=== PATIENT | female | born 1990 | race Caucasian/White ===

== ENCOUNTER 2019-03-07 01:06 | Inpatient (IN) | payer OTHER ==
[2019-03-07] MEDS ORDERED: Terbutaline 1 MG/ML SDV SUBCUT PRN (08:31)
[2019-03-07] MEDS ORDERED: Methylergonovine 0.2 MG/1 ML Amp IM PRN ×2 (08:34→18:00)
[2019-03-07] MEDS ORDERED: Carboprost Tromethamine 250 MCG/1 ML Amp IM PRN (08:34)
[2019-03-07] MEDS ORDERED: Sodium Chloride 0.9% 10 ML Syringe FLUSH PRN (08:34)
[2019-03-07] MEDS ORDERED: Ondansetron 4 MG/2 ML SDV IVPUSH PRN (08:34)
[2019-03-07] MEDS ORDERED: Water For Irrigation,Sterile 1,000 ML Container IRR PRN (08:34)
[2019-03-07] MEDS ORDERED: Butorphanol 1 MG/ML SDV IVPUSH PRN (08:34)
[2019-03-07] MEDS ORDERED: Nalbuphine 10 MG/1 ML Vial IVPUSH PRN (08:34)
[2019-03-07] MEDS ORDERED: Sodium Chloride 0.9% 2.5 ML Syringe FLUSH PRN (08:34)
[2019-03-07] MEDS ORDERED: Sodium Chloride 0.9% 10 ML SDV IV PRN (08:34)
[2019-03-07] MEDS ORDERED: Tranexamic Acid 1,000 MG in Sodium Chloride 0.9% 100 ML IV PRN ×2 (08:34→18:00)
[2019-03-07] MEDS ORDERED: Misoprostol 200 MCG Tab PO PRN (08:34)
[2019-03-07] MEDS ORDERED: Lidocaine 1% 50 ML MDV INJECT PRN (08:34)
[2019-03-07] MEDS ORDERED: hydrOXYzine HCl 25 MG Tab PO PRN (08:34)
[2019-03-07] MEDS ORDERED: Oxytocin/0.9 % Sodium Chloride 30 UNIT/500 ML BAG IV SCH ×2 (08:45)
[2019-03-07] MEDS: Lactated Ringers 1,000 ML IV SCH ×2 (08:50→12:24)
[2019-03-07] MEDS ORDERED: fentaNYL 100 MCG/2 ML SDV ONE (12:03)
[2019-03-07] MEDS ORDERED: Bupivicaine/fentaNYL/NS 250 ML ONE (12:04)
[2019-03-07] MEDS ORDERED: Bupivacaine 0.25% 10 ML SDV ONE (12:04)
--- NOTE | 2019-03-07 12:31 | PCM.PREANE ---
Preanesthetic Assessment - Anesthesia/Transfusion/Family Hx Anesthesia History: Prior Anesthesia Without Reaction Transfusion History: No Prior Transfusion(s) - Review of Systems General: No Symptoms Pulmonary: No Symptoms Cardiovascular: No Symptoms Gastrointestinal: No Symptoms Neurological: No Symptoms - Physical Assessment Height: 1.6 m Weight: 102.965 kg ASA Class: 2E Mental Status: Alert & Oriented x3 Dentition: Reports: Normal Dentition Lungs: Clear to Auscultation, Normal Respiratory Effort Cardiovascular: Regular Rate, Regular Rhythm - Lab Values: Laboratory Last Values WBC 10.80 K/uL (4.0-11.0) 03/07/19 08:53 RBC 4.31 M/uL (4.30-5.90) 03/07/19 08:53 Hgb 11.1 g/dL (12.0-16.0) L 03/07/19 08:53 Hct 34.1 % (36.0-46.0) L 03/07/19 08:53 MCV 79.1 fL (80.0-98.0) L 03/07/19 08:53 MCH 25.8 pg (27.0-32.0) L 03/07/19 08:53 MCHC 32.6 g/dL (31.0-37.0) 03/07/19 08:53 RDW Std Deviation 41.2 fl (28.0-62.0) 03/07/19 08:53 RDW Coeff of Raul 15 % (11.0-15.0) 03/07/19 08:53 Plt Count 252 K/uL (150-400) 03/07/19 08:53 MPV 11.00 fL (7.40-12.00) 03/07/19 08:53 Nucleated RBC % 0.0 /100WBC 03/07/19 08:53 Nucleated RBCs # 0 K/uL 03/07/19 08:53 Blood Type B POSITIVE 03/07/19 08:53 Antibody Screen NEGATIVE 03/07/19 08:53 - Allergies Allergies/Adverse Reactions: Allergies Allergy/AdvReac Type Severity Reaction Status Date / Time No Known Allergies Allergy Verified 03/07/19 01:16 - Acknowledgements Pt an Appropriate Candidate for the Planned Anesthesia: Yes Alternatives and Risks of Anesthesia Discussed w Pt/Guardian: Yes Pt/Guardian Understands and Agrees with Anesthesia Plan: Yes PreAnesthesia Questionnaire - Past Health History Medical/Surgical History: Denies Medical/Surgical History HEENT History: Reports: None Cardiovascular History: Reports: None Respiratory History: Reports: None Gastrointestinal History: Reports: None Genitourinary History: Reports: None BOX MAKER History: Reports: Musculoskeletal History: Reports: None Neurological History: Reports: None Psychiatric History: Reports: None Endocrine/Metabolic History: Reports: None Hematologic History: Reports: None Immunologic History: Reports: None Dermatologic History: Reports: None - Infectious Disease History Infectious Disease History: Reports: None - Past Surgical History Head Surgeries/Procedures: Reports: None - SUBSTANCE USE Smoking Status *Q: Former Smoker Tobacco Use Within Last Twelve Months: Cigarettes Second Hand Smoke Exposure: No Recreational Drug Use History: No - CURRENT (IN HOUSE) MEDS Current Meds: Current Medications Butorphanol Tartrate (Stadol) 1 mg IVPUSH Q1H PRN PRN Reason: Pain Carboprost Tromethamine (Hemabate Ds) 250 mcg IM ASDIRECTED PRN PRN Reason: Post Hemorrhage Hydroxyzine HCl (Atarax) 25 mg PO Q6H PRN PRN Reason: Itching Oxytocin/Sodium Chloride (Oxytocin 30 Unit/500 Ml-Ns) 30 unit in 500 mls @ 2 mls/hr IV TITRATE CAMRON; Protocol Last Titration: 03/07/19 11:30 Dose: 10 munits/min, 10 mls/hr Tranexamic Acid 1,000 mg/ (Sodium Chloride) 110 mls @ 660 mls/hr IV ONETIME PRN PRN Reason: Bleeding Lactated Ringer's (Ringers, Lactated) 1,000 mls @ 150 mls/hr IV ASDIRECTED CAMRON Last Admin: 03/07/19 08:50 Dose: 150 mls/hr Oxytocin/Sodium Chloride (Oxytocin 30 Unit/500 Ml-Ns) 30 unit in 500 mls @ 1, 000 mls/hr IV TITRATE CAMRON Lidocaine HCl (Xylocaine 1%) 50 ml INJECT ONETIME PRN PRN Reason: Laceration repair Methylergonovine Maleate (Methergine) 0.2 mg IM ASDIRECTED PRN PRN Reason: Post Hemorrhage Misoprostol (Cytotec) 200 mcg PO ONETIME PRN PRN Reason: Post Hemorrhage Nalbuphine HCl (Nubain) 10 mg IVPUSH Q1H PRN PRN Reason: Pain (severe 7-10) Ondansetron HCl (Zofran) 4 mg IVPUSH Q4H PRN PRN Reason: Nausea/Vomiting Sodium Chloride (Saline Flush) 10 ml FLUSH ASDIRECTED PRN PRN Reason: Keep Vein Open Sodium Chloride (Saline Flush) 2.5 ml FLUSH ASDIRECTED PRN PRN Reason: Keep Vein Open Sodium Chloride (Normal Saline) 10 ml IV ASDIRECTED PRN PRN Reason: IV Use Sterile Water (Sterile Water For Irrigation) 1,000 ml IRR ASDIRECTED PRN PRN Reason: delivery Terbutaline Sulfate (Brethine) 0.25 mg SUBCUT ASDIRECTED PRN PRN Reason: Tacysystole Discontinued Medications Bupivacaine HCl (Sensorcaine-Mpf 0.25%) Confirm Administered Dose 10 ml .ROUTE .STK-MED ONE Stop: 03/07/19 12:05 Fentanyl (Sublimaze) Confirm Administered Dose 100 mcg .ROUTE .STK-MED ONE Stop: 03/07/19 12:04 Fentanyl/Bupivacaine HCl (Fentanyl/Bupivacaine/Ns 2 Mcg-0.125% 250 Ml) Confirm Administered Dose 250 mls @ as directed .ROUTE .STK-MED ONE Stop: 03/07/19 12:05
--- NOTE | 2019-03-07 17:57 | PCM.DEL ---
L & D Note - General Info Date of Service: 03/07/19 Mother's Due Date: 03/08/19 - Delivery Note Labor: Induced by Oxytocin Delivery Outcome: Livebirth Infant Delivery Method: Spontaneous Vaginal Delivery-Single Presentation: Left Occiput Anterior (SHAZIA) Nuchal Cord: None Prep: Other Anesthesia Type: Epidural Amniotic Fluid Description: Clear Episiotomy Type: None Laceration: 1st Degree Suture type: Vicryl Suture size: 3-0 Placenta: Intact, Spontaneous, Abnormal Resuscitation Needed: No [place]: Suctioned Score 1 min: 9 Score 5 min: 9 Delivery Comments (Free Text/Narrative):: liveborn male at 1738, placenta spontaneous, Méndez intact with 3 vessels. EBL 200 ml - General Info Date of Service: 03/07/19 - Patient Data Weight - Most Recent: 102.965 kg Lab Results Last 24 Hours: Laboratory Results - last 24 hr 03/07/19 03/07/19 Range/Units 08:53 08:53 WBC 10.80 (4.0-11.0) K/uL RBC 4.31 (4.30-5.90) M/uL Hgb 11.1 L (12.0-16.0) g/dL Hct 34.1 L (36.0-46.0) % MCV 79.1 L (80.0-98.0) fL MCH 25.8 L (27.0-32.0) pg MCHC 32.6 (31.0-37.0) g/dL RDW Std Deviation 41.2 (28.0-62.0) fl RDW Coeff of Raul 15 (11.0-15.0) % Plt Count 252 (150-400) K/uL MPV 11.00 (7.40-12.00) fL Nucleated RBC % 0.0 /100WBC Nucleated RBCs # 0 K/uL Blood Type B POSITIVE Antibody Screen NEGATIVE Med Orders - Current: Current Medications Butorphanol Tartrate (Stadol) 1 mg IVPUSH Q1H PRN PRN Reason: Pain Carboprost Tromethamine (Hemabate Ds) 250 mcg IM ASDIRECTED PRN PRN Reason: Post Hemorrhage Hydroxyzine HCl (Atarax) 25 mg PO Q6H PRN PRN Reason: Itching Oxytocin/Sodium Chloride (Oxytocin 30 Unit/500 Ml-Ns) 30 unit in 500 mls @ 2 mls/hr IV TITRATE CAMRON; Protocol Last Titration: 03/07/19 15:41 Dose: 16 munits/min, 16 mls/hr Tranexamic Acid 1,000 mg/ (Sodium Chloride) 110 mls @ 660 mls/hr IV ONETIME PRN PRN Reason: Bleeding Lactated Ringer's (Ringers, Lactated) 1,000 mls @ 150 mls/hr IV ASDIRECTED CAMRON Last Infusion: 03/07/19 12:46 Dose: 150 mls/hr Oxytocin/Sodium Chloride (Oxytocin 30 Unit/500 Ml-Ns) 30 unit in 500 mls @ 1, 000 mls/hr IV TITRATE CAMRON Lidocaine HCl (Xylocaine 1%) 50 ml INJECT ONETIME PRN PRN Reason: Laceration repair Methylergonovine Maleate (Methergine) 0.2 mg IM ASDIRECTED PRN PRN Reason: Post Hemorrhage Misoprostol (Cytotec) 200 mcg PO ONETIME PRN PRN Reason: Post Hemorrhage Nalbuphine HCl (Nubain) 10 mg IVPUSH Q1H PRN PRN Reason: Pain (severe 7-10) Ondansetron HCl (Zofran) 4 mg IVPUSH Q4H PRN PRN Reason: Nausea/Vomiting Sodium Chloride (Saline Flush) 10 ml FLUSH ASDIRECTED PRN PRN Reason: Keep Vein Open Sodium Chloride (Saline Flush) 2.5 ml FLUSH ASDIRECTED PRN PRN Reason: Keep Vein Open Sodium Chloride (Normal Saline) 10 ml IV ASDIRECTED PRN PRN Reason: IV Use Sterile Water (Sterile Water For Irrigation) 1,000 ml IRR ASDIRECTED PRN PRN Reason: delivery Terbutaline Sulfate (Brethine) 0.25 mg SUBCUT ASDIRECTED PRN PRN Reason: Tacysystole Discontinued Medications Bupivacaine HCl (Sensorcaine-Mpf 0.25%) Confirm Administered Dose 10 ml .ROUTE .STK-MED ONE Stop: 03/07/19 12:05 Fentanyl (Sublimaze) Confirm Administered Dose 100 mcg .ROUTE .STK-MED ONE Stop: 03/07/19 12:04 Fentanyl/Bupivacaine HCl (Fentanyl/Bupivacaine/Ns 2 Mcg-0.125% 250 Ml) Confirm Administered Dose 250 mls @ as directed .ROUTE .STK-MED ONE Stop: 03/07/19 12:05 - Problem List & Annotations (1) PROM with onset of labor within 24 hours, delivered, curr hospitaliz SNOMED Code(s): 721722903, 917454439 Code(s): O42.00 - YUNIER ROM, ONSET LABOR W/N 24 HR OF RUPT, UNSP WEEKS OF GEST Status: Acute Current Visit: Yes - Problem List Review Problem List Initiated/Reviewed/Updated: Yes
[2019-03-07] MEDS ORDERED: oxyCODONE 5 MG Tab PO PRN (18:00)
[2019-03-07] MEDS ORDERED: Docusate Sodium 100 MG Cap PO PRN (18:00)
[2019-03-07] MEDS ORDERED: Bisacodyl 10 MG Supp RECTAL PRN (18:00)
[2019-03-07] MEDS ORDERED: Acetaminophen 500 MG Tab PO PRN ×2 (18:00)
[2019-03-07] MEDS ORDERED: Benzocaine/Menthol 20%-0.5% Spray 78 GM Cannister TOP PRN (18:00)
[2019-03-07] MEDS ORDERED: Witch Hazel Medicated Pads 40/Jar TOP PRN (18:00)
[2019-03-07] MEDS ORDERED: Ibuprofen 400 MG Tab PO PRN (18:00)
--- NOTE | 2019-03-07 19:50 | OR ---
SURGEON: Diane Grant M.D. DATE OF PROCEDURE: 03/07/2019 PREOPERATIVE DIAGNOSES: 39 and 6/7 weeks' intrauterine , premature rupture of membranes with induction of labor, term spontaneous vaginal delivery. PRIMARY SURGEON: Diane Grant M.D. ANESTHESIA: Epidural. ESTIMATED BLOOD LOSS: Less than 200 mL. FINDINGS: Liveborn male. score of 9 and 9. Weight is pending at the time of dictation. First-degree perineal laceration repaired. Placenta spontaneous, Méndez intact, with 3 vessels. COMPLICATION: None known. DISPOSITION: Mother and baby are in LDRP in good condition. BRIEF HISTORY: This is a 29-year-old female. She is G2, P1-0-0-1. She presented with early labor with a deceleration noted. Therefore, she was kept and started on Pitocin and she had category 1 heart tones throughout labor. She progressed to complete. DESCRIPTION OF PROCEDURE: With the patient in dorsal lithotomy position, the patient pushed over 3 contractions to a 5+ station, at which time the head was delivered spontaneously and atraumatically over the perineum with support with subsequent delivery of the 's shoulders and body without any difficulty. The was bulb suctioned by nose and mouth. The cord was clamped x2 and cut after it had ceased to pulsate, and the infant was handed to the mother in the presence of the nurse attending delivery. The was a liveborn male, score of 9 and 9. Weight is pending at the time of dictation. Cord blood was collected for cord ABGs as well as routine cord blood sampling. Pitocin was initiated after delivery of the infant to assist with delivery of the placenta which was delivered spontaneously, Schultze intact with 3 vessels. Upon inspection of the pelvis and perineum, there were no periurethral, vaginal sidewall, cervical, or rectal lacerations. There was a superficial first-degree perineal laceration, which was repaired with subcuticular suture of 3-0 Vicryl. Final sponge, needle, and instrument counts were correct. There were no complications. Mother and baby are in LDRP in good condition. JORGE / WANDA /[id number]
[2019-03-07] MEDS: Lanolin 100% Cream 7 GM Tube TOP PRN (20:02)
[2019-03-08] MEDS: Ibuprofen 800 MG Tab PO PRN ×2 (03:25→15:31)
--- NOTE | 2019-03-08 03:52 | PCM48HPAN ---
Post Anesthesia Note - EVALUATION WITHIN 48HRS OF ANESTHETIC Vital Signs in Normal Range: Yes Patient Participated in Evaluation: Yes Respiratory Function Stable: Yes Airway Patent: Yes Cardiovascular Function Stable: Yes Hydration Status Stable: Yes Pain Control Satisfactory: Yes Nausea and Vomiting Control Satisfactory: Yes Mental Status Recovered: Yes
--- NOTE | 2019-03-08 07:17 | PCM48HPAN ---
Post Anesthesia Note - EVALUATION WITHIN 48HRS OF ANESTHETIC Vital Signs in Normal Range: Yes Patient Participated in Evaluation: Yes Respiratory Function Stable: Yes Airway Patent: Yes Cardiovascular Function Stable: Yes Hydration Status Stable: Yes Pain Control Satisfactory: Yes Nausea and Vomiting Control Satisfactory: Yes Mental Status Recovered: Yes Vital Signs: Last Vital Signs Temp 36.3 C 03/08/19 04:00 Pulse 82 03/08/19 04:00 Resp 16 03/08/19 04:00 BP 107/64 03/08/19 04:00 Pulse Ox 100 03/08/19 04:00
[2019-03-08] MEDS ORDERED: Measles, Mumps & Rubella Vaccine 0.5 ML SDV SUBCUT ONE (07:46)
[2019-03-08] MEDS: Lanolin 100% Cream 7 GM Tube TOP PRN (11:44)
--- NOTE | 2019-03-08 14:37 | PCM.PNPP ---
- General Info Date of Service: 03/08/19 Subjective Update: 29 yo P2 s/p PPD 1 , denies any complains Normal lochia Functional Status: Reports: Pain Controlled, Tolerating Diet, Ambulating, Urinating - Review of Systems General: Reports: No Symptoms HEENT: Reports: No Symptoms Pulmonary: Reports: No Symptoms Cardiovascular: Reports: No Symptoms Gastrointestinal: Reports: No Symptoms Genitourinary: Reports: No Symptoms Musculoskeletal: Reports: No Symptoms Skin: Reports: No Symptoms Neurological: Reports: No Symptoms Psychiatric: Reports: No Symptoms - General Info Date of Service: 03/08/19 - Patient Data Vital Signs - Most Recent: Last Vital Signs Temp 36.2 C 03/08/19 12:00 Pulse 93 03/08/19 12:00 Resp 22 H 03/08/19 12:00 BP 120/65 03/08/19 12:00 Pulse Ox 96 03/08/19 12:00 Weight - Most Recent: 102.965 kg Lab Results - Last 24 Hours: Laboratory Results - last 24 hr 03/07/19 03/07/19 03/08/19 Range/Units 17:38 17:38 05:49 Hgb 10.1 L (12.0-16.0) g/dL Hct 31.6 L (36.0-46.0) % Cord ABG pH 7.347 (7.18-7.38) Cord ABG Base Excess -5 (-10--2) Cord VBG pH 7.327 (7.25-7.45) Cord VBG Base Excess -6 (-10--2) Med Orders - Current: Current Medications Acetaminophen (Tylenol Extra Strength) 500 mg PO Q4H PRN PRN Reason: Pain Acetaminophen (Tylenol Extra Strength) 1,000 mg PO Q4H PRN PRN Reason: Pain Last Admin: 03/07/19 20:33 Dose: 1,000 mg Benzocaine/Menthol (Dermoplast Pain Relief 20%-0.5% [place]) 78 gm TOP ASDIRECTED PRN PRN Reason: Perineal Comfort Measure Last Admin: 03/07/19 20:01 Dose: 78 gm Bisacodyl (Dulcolax) 10 mg RECTAL ONETIME PRN PRN Reason: Constipation Docusate Sodium (Colace) 100 mg PO BID PRN PRN Reason: Constipation Emollient Ointment (Lansinoh Hpa) 0 gm TOP ASDIRECTED PRN PRN Reason: Sore Nipples Last Admin: 03/08/19 11:44 Dose: 7 gm Tranexamic Acid 1,000 mg/ (Sodium Chloride) 110 mls @ 660 mls/hr IV ONETIME PRN PRN Reason: Bleeding Ibuprofen (Motrin) 400 mg PO Q4H PRN PRN Reason: Pain Ibuprofen (Motrin) 800 mg PO Q6H PRN PRN Reason: Pain Last Admin: 03/08/19 03:25 Dose: 800 mg Methylergonovine Maleate (Methergine) 0.2 mg IM ONETIME PRN PRN Reason: Excessive Vaginal Bleeding Oxycodone HCl (Oxycodone) 5 mg PO Q2H PRN PRN Reason: Pain [place] (Tucks) 1 pad TOP ASDIRECTED PRN PRN Reason: comfort care Discontinued Medications Bupivacaine HCl (Sensorcaine-Mpf 0.25%) Confirm Administered Dose 10 ml .ROUTE .STK-MED ONE Stop: 03/07/19 12:05 Last Admin: 03/08/19 10:52 Dose: Not Given Butorphanol Tartrate (Stadol) 1 mg IVPUSH Q1H PRN PRN Reason: Pain Carboprost Tromethamine (Hemabate Ds) 250 mcg IM ASDIRECTED PRN PRN Reason: Post Hemorrhage Fentanyl (Sublimaze) Confirm Administered Dose 100 mcg .ROUTE .STK-MED ONE Stop: 03/07/19 12:04 Last Admin: 03/08/19 10:52 Dose: Not Given Hydroxyzine HCl (Atarax) 25 mg PO Q6H PRN PRN Reason: Itching Oxytocin/Sodium Chloride (Oxytocin 30 Unit/500 Ml-Ns) 30 unit in 500 mls @ 2 mls/hr IV TITRATE CAMRON; Protocol Last Titration: 03/07/19 17:40 Dose: 500 munits/min, 500 mls/hr Tranexamic Acid 1,000 mg/ (Sodium Chloride) 110 mls @ 660 mls/hr IV ONETIME PRN PRN Reason: Bleeding Lactated Ringer's (Ringers, Lactated) 1,000 mls @ 150 mls/hr IV ASDIRECTED CAMRON Last Infusion: 03/07/19 12:46 Dose: 150 mls/hr Oxytocin/Sodium Chloride (Oxytocin 30 Unit/500 Ml-Ns) 30 unit in 500 mls @ 1, 000 mls/hr IV TITRATE CAMRON Fentanyl/Bupivacaine HCl (Fentanyl/Bupivacaine/Ns 2 Mcg-0.125% 250 Ml) Confirm Administered Dose 250 mls @ as directed .ROUTE .Art Qualified-MED ONE Stop: 03/07/19 12:05 Last Admin: 03/08/19 10:52 Dose: Not Given Lidocaine HCl (Xylocaine 1%) 50 ml INJECT ONETIME PRN PRN Reason: Laceration repair Measles/Mumps/Rubella Vaccine Live (M-M-R Ii Vaccine) 0.5 ml SUBCUT .ONCE ONE Stop: 03/08/19 07:47 Methylergonovine Maleate (Methergine) 0.2 mg IM ASDIRECTED PRN PRN Reason: Post Hemorrhage Misoprostol (Cytotec) 200 mcg PO ONETIME PRN PRN Reason: Post Hemorrhage Nalbuphine HCl (Nubain) 10 mg IVPUSH Q1H PRN PRN Reason: Pain (severe 7-10) Ondansetron HCl (Zofran) 4 mg IVPUSH Q4H PRN PRN Reason: Nausea/Vomiting Sodium Chloride (Saline Flush) 10 ml FLUSH ASDIRECTED PRN PRN Reason: Keep Vein Open Sodium Chloride (Saline Flush) 2.5 ml FLUSH ASDIRECTED PRN PRN Reason: Keep Vein Open Sodium Chloride (Normal Saline) 10 ml IV ASDIRECTED PRN PRN Reason: IV Use Sterile Water (Sterile Water For Irrigation) 1,000 ml IRR ASDIRECTED PRN PRN Reason: delivery Terbutaline Sulfate (Brethine) 0.25 mg SUBCUT ASDIRECTED PRN PRN Reason: Tacysystole - Infant Interaction Support Person: Other (see below) - Recovery Exam Fundal Tone: Firm Fundal Level: At Umbilicus Fundal Placement: Midline Lochia Amount: Scant Lochia Color: Rubra/Red Perineum Description: Other (see below) Other Perinuem Description: 1st degree laceration Episiotomy/Laceration: Approximated Bladder Status: Voiding Urinary Elimination: Voided - Exam General: Alert HEENT: Pupils Equal Neck: Supple Lungs: Clear to Auscultation Cardiovascular: Regular Rate, Regular Rhythm GI/Abdominal Exam: Normal Bowel Sounds Extremities: Normal Inspection Neurological: No New Focal Deficit - Problem List & Annotations (1) Vaginal delivery SNOMED Code(s): 307782514 Code(s): O80 - ENCOUNTER FOR FULL-TERM UNCOMPLICATED DELIVERY Status: Acute Current Visit: Yes - Problem List Review Problem List Initiated/Reviewed/Updated: Yes - Assessment Assessment:: 29yo P2 s/p PPD1 stable Normal lochia - Plan Plan:: Discharge home today
== END 2019-03-08 22:38 | disposition home or self-care (01) | DRG 807 ==
LOC: MW.OBCHECK 01:06 → MW.OB 01:09 → MW.OBCHECK 01:09 → MW.OB 17:50 → MW.OBCHECK 17:50 → OBSVTOIN 18:00 → MW.OB 18:00 → MW.OBCHECK 18:21 → MW.OB 21:42
PROVIDERS: ADMIT Obstetrics & Gynecology; ATTEND Obstetrics & Gynecology
PROC: 10E0XZZ Delivery of Products of Conception, External Approach (ICD-10-PCS; principal; 2019-03-07)
PROC: 0HQ9XZZ Repair Perineum Skin, External Approach (ICD-10-PCS; 2019-03-07)
PROC: 3E0R3BZ Introduction of Anesthetic Agent into Spinal Canal, Percutaneous Approach (ICD-10-PCS; 2019-03-07)
PROC: 3E0234Z Introduction of Serum, Toxoid and Vaccine into Muscle, Percutaneous Approach (ICD-10-PCS; 2019-03-08)
DX: O42.02 Full-term premature rupture of membranes, onset of labor within 24 hours of rupture (principal); Z37.0 Single live birth; O70.0 First degree perineal laceration during delivery; O76 Abnormality in fetal heart rate and rhythm complicating labor and delivery; Z23 Encounter for immunization; Z3A.39 39 weeks gestation of pregnancy
CPT/HCPCS: 36415; 51702; 59025; 59409; 82803; 85014; 85018; 85027; 86593; 86850; 86900; 86901; 90471; 90707; A9270-GY; J2590; J7120